=== PATIENT | female | born 1955 | race Caucasian/White ===

== ENCOUNTER 2019-05-10 04:39 | Inpatient (IN) | payer MEDICAID ==
[2019-05-10] VITALS (8 sets, daily range): BP systolic 113–137; BP diastolic 65–98
[~2019-05-10] VITALS: Ht 175.3 cm; Wt 88.5 kg
--- NOTE | 2019-05-10 04:52 | Emergency Room Report ---
History of Present Illness General Chief Complaint: Upper Respiratory Illness Source: Patient (Emmanuel Simon MD) Present Illness HPI This is a 63-year-old female with a history of COPD and hypertension. She presents with chief plane of coughing and wheezing. She is also been coughing for a month. Getting worse. She said her inhalers not helping. But she continues to smoke and smokes PCP. Also showed up with heroin. She is on the methadone clinic. Got worse tonight that she called 911. EMS said she was 91% on room air and was wheezing so they gave her albuterol. She is little bit better now. Has hoarseness of her voice. No nausea no vomiting. No fever chills. Coughing is productive of sputum. Denies any fever chills but denies any chest pain. Does have chest tightness from her breathing. (Emmanuel Simon MD) Allergies: Coded Allergies: TOPIRAMATE (Verified Allergy, Severe, 05/10/19) Says it puts her out and makes her delerious. METRONIDAZOLE (Verified Allergy, Unknown, Altered Mental Status, 05/10/19) She feels . VANCOMYCIN (Verified Allergy, Unknown, Itching, 05/10/19) Swells up like [place] doughboy. Patient History Past Medical History: see triage record, old chart reviewed, HTN, COPD Past Surgical History: other Pertinent Family History: none Social History: Reports: drug use Last Menstrual Period: na Now: No : 2 Para: 0 Immunizations: other Reviewed Nursing Documentation: PMH: Agreed; PSxH: Agreed (Emmanuel Simon MD) Nursing Documentation-PMH Hx Hypertension: Yes (Emmanuel Simon MD) Review of Systems Eye: Denies: eye pain, blurred vision ENT: Denies: ear pain, nose congestion, throat swelling Respiratory: Reports: cough, shortness of breath, wheezing Cardiovascular: Denies: chest pain, palpitations Gastrointestinal: Denies: abdominal pain, diarrhea, nausea, vomiting Musculoskeletal: Denies: back pain, joint pain Skin: Denies: rash Neurological: Denies: headache, numbness Endocrine: Denies: increased thirst, increased urine Hematologic/Lymphatic: Denies: easy bruising All Other Systems: negative except mentioned in HPI (Emmanuel Simon MD) Physical Exam Vital Signs Date Time Temp Pulse Resp B/P (MAP) Pulse Ox O2 Delivery O2 Flow Rate FiO2 05/10/19 04:40 98.8 97 16 116/85 (95) 94 Room Air Vitals unremarkable Sp02 EP Interpretation: reviewed, normal General Appearance: well appearing, no apparent distress, alert, obese Head: normocephalic, atraumatic Eyes: bilateral eye PERRL, bilateral eye EOMI ENT: hearing grossly normal, normal pharynx Neck: full range of motion, supple, no meningismus Respiratory: chest non-tender, decreased breath sounds, accessory muscle use, rhonchi, wheezing Cardiovascular #1: regular rate, rhythm, no murmur Gastrointestinal: normal bowel sounds, non tender, no mass, no organomegaly, no bruit, non-distended Musculoskeletal: back normal, normal range of motion, gait/station normal Psychiatric: mood/affect normal (Emmanuel Simon MD) Medical Decision Making Diagnostic Impression: Primary Impression: COPD with exacerbation Additional Impressions: Substance abuse Hiatal hernia Thrombocytopenia ER Course Presents with respiratory distress with wheezing. Better with breathing treatment. She is still wheezing however. Will admit versus transfer for further work-up. I see no obvious pneumonia. Since she has been coughing for a month, will put her on antibiotics. With the risk factor, neoplastic process could also be a consideration. She has a very large hiatal hernia. This can cause her problem with her respiratory status and reflux. No evidence of ACS, PE, dissection to name a few. (Emmanuel Simon MD) ER Course Patient presented for a cough and shortness of breath. Patient's laboratory testing was unremarkable. Chest x-ray showed a large hiatal hernia without evidence of pneumonia or infiltrate. Patient was discussed with Dr. Armenta who agreed to accept the patient transfer to [facility]. Patient's insurance company was unable to arrange arrange timely transfer for the patient and patient will be admitted to Dr. Gallardo. Labs Test 05/10/19 05:20 05/10/19 06:10 White Blood Count 6.6 K/UL (4.8-10.8) Red Blood Count 4.69 M/UL (4.20-5.40) Hemoglobin 14.5 G/DL (12.0-16.0) Hematocrit 40.9 % (37.0-47.0) Mean Corpuscular Volume 87 FL (80-99) Mean Corpuscular Hemoglobin 30.9 PG (27.0-31.0) Mean Corpuscular Hemoglobin Concent 35.5 G/DL (32.0-36.0) Red Cell Distribution Width 11.2 % (11.6-14.8) Platelet Count 86 K/UL (150-450) Mean Platelet Volume 11.5 FL (6.5-10.1) Neutrophils (%) (Auto) % (45.0-75.0) Lymphocytes (%) (Auto) % (20.0-45.0) Monocytes (%) (Auto) % (1.0-10.0) Eosinophils (%) (Auto) % (0.0-3.0) Basophils (%) (Auto) % (0.0-2.0) Sodium Level 134 MMOL/L (136-145) Potassium Level 3.6 MMOL/L (3.5-5.1) Chloride Level 98 MMOL/L (98-107) Carbon Dioxide Level 31 MMOL/L (21-32) Anion Gap 5 mmol/L (5-15) Blood Urea Nitrogen 22 mg/dL (7-18) Creatinine 1.0 MG/DL (0.55-1.30) Estimat Glomerular Filtration Rate 56.2 mL/min (>60) Glucose Level 171 MG/DL (74-106) Calcium Level 8.3 MG/DL (8.5-10.1) Total Bilirubin 0.7 MG/DL (0.2-1.0) Aspartate Amino Transf (AST/SGOT) 33 U/L (15-37) Alanine Aminotransferase (ALT/SGPT) 27 U/L (12-78) Alkaline Phosphatase 76 U/L (46-116) Troponin I 0.000 ng/mL (0.000-0.056) Pro-B-Type Natriuretic Peptide 177 pg/mL (0-125) Total Protein 7.8 G/DL (6.4-8.2) Albumin 3.0 G/DL (3.4-5.0) Globulin 4.8 g/dL Albumin/Globulin Ratio 0.6 (1.0-2.7) Serum Alcohol < 3 mg/dL Urine Color Yellow Urine Appearance Clear Urine pH 5 (4.5-8.0) Urine Specific [place] 1.020 (1.005-1.035) Urine Protein 2+ (NEGATIVE) Urine Glucose (UA) 2+ (NEGATIVE) Urine Ketones Negative (NEGATIVE) Urine Blood 2+ (NEGATIVE) Urine Nitrite Negative (NEGATIVE) Urine Bilirubin Negative (NEGATIVE) Urine Urobilinogen 1 MG/DL (0.0-1.0) Urine Leukocyte Esterase 1+ (NEGATIVE) Urine RBC 2-4 /HPF (0 - 2) Urine WBC 2-4 /HPF (0 - 2) Urine Squamous Epithelial Cells Few /LPF (NONE/OCC) Urine Bacteria Few /HPF (NONE) Urine Opiates Screen Negative (NEGATIVE) Urine Barbiturates Screen Negative (NEGATIVE) Phencyclidine (PCP) Screen Negative (NEGATIVE) Urine Amphetamines Screen Positive (NEGATIVE) Urine Benzodiazepines Screen Positive (NEGATIVE) Urine Cocaine Screen Negative (NEGATIVE) Urine Marijuana (THC) Screen Negative (NEGATIVE) (Amanuel Bailey MD) EKG Diagnostic Results Rate: normal Rhythm: NSR ST Segments: no acute changes (Emmanuel Simon MD) Rhythm Strip Diag. Results EP Interpretation: yes Rate: 89 Rhythm: NSR, no PVC's, no ectopy (Emmanuel Simon MD) Chest X-Ray Diagnostic Results Chest X-Ray Diagnostic Results : Chest X-Ray Ordered: Yes # of Views/Limited/Complete: 1 View Indication: Shortness of Breath EP Interpretation: Yes Interpretation: no effusion, no pneumothorax, other - large hiatal hernia Impression: Other - hiatal hernia Electronically Signed by: Emmanuel Simon MD (Emmanuel Simon MD) Last Vital Signs Date Time Temp Pulse Resp B/P (MAP) Pulse Ox O2 Delivery O2 Flow Rate FiO2 05/10/19 04:40 98.8 97 16 116/85 (95) 94 Room Air Status: improved (Emmanuel Simon MD) Status: improved (Amanuel Bailey MD) Disposition: ADMITTED INPATIENT Condition: Serious Emmanuel Simon MD May 10, 2019 04:52 Amanuel Bailey MD May 10, 2019 07:26
[2019-05-10] MEDS ORDERED: Ipratropium 0.02% Inh Soln 2.5ml UD HHN ONE (05:00)
[2019-05-10] MEDS ORDERED: Albuterol ud Inhalation HHN ONE ×2 (05:00→06:45)
[2019-05-10] MEDS ORDERED: Solu-MEDROL 125mg Inj IVP ONE (05:00)
--- NOTE | 2019-05-10 05:05 | NUR ---
ED Nurse Note: pt presents to ED via EMS arrival RA 26 from home c/o SOB. pt states that she just started feeling difficulty breathing but has had a cough x 1 month. per EMS, pt was at 91% on RA, they gave her a breathing treatment with albuterol which brought her up to 94%. pt reports a 40 year history of drug use, primarily meth and heroine. pt admits to using meth today prior to arrival and last using heroine last week sometime. pt has chronic knee pain and uses a wheelchair
--- NOTE | 2019-05-10 05:06 | NUR ---
ED Nurse Note: pt has many bruises noted on her abd and arms, when asked what they are from pt reports that they are from "shooting up"
--- NOTE | 2019-05-10 05:14 | NUR ---
ED Nurse Note: pt has audilble wheezes, SpO2 was at 88% on room air, pt put on NC 4L, now satting at 97%
--- NOTE | 2019-05-10 05:15 | NUR ---
ED Nurse Note: RT is at pt bedside
[2019-05-10 06:00] LABS: HEMATOCRIT 40.9 % (37.0-47.0); HEMOGLOBIN 14.5 G/DL (12.0-16.0); MEAN CORPUSCULAR VOLUME 87 FL (80-99); PLATELET COUNT 86 K/UL (150-450); RED BLOOD COUNT 4.69 M/UL (4.20-5.40); RED CELL DISTRIBUTION WIDTH 11.2 % (11.6-14.8); WHITE BLOOD COUNT 6.6 K/UL (4.8-10.8)
--- NOTE | 2019-05-10 06:05 | NUR ---
ED Nurse Note: pt's wheelchair and belongings were placed in clean utilities with identification stickers on them due to limited space in pt room
[2019-05-10 06:11] LABS: ANION GAP 5 mmol/L (5-15); BLOOD UREA NITROGEN 22 mg/dL (7-18); CALCIUM 8.3 MG/DL (8.5-10.1); CARBON DIOXIDE 31 MMOL/L (21-32); CHLORIDE 98 MMOL/L (98-107); POTASSIUM 3.6 MMOL/L (3.5-5.1); SODIUM 134 MMOL/L (136-145)
[2019-05-10] MEDS ORDERED: Azithromycin 250mg tab ORAL ONE (06:15)
[2019-05-10] MEDS ORDERED: cefTRIAXone 1 GM in NS 55 ML IVPB ONE (06:15)
[2019-05-10 06:21] LABS: ALANINE AMINOTRANSFERASE 27 U/L (12-78); ALBUMIN/GLOBULIN RATIO 0.6 (1.0-2.7); ALKALINE PHOSPHATASE 76 U/L (46-116); ASPARTATE AMINO TRANSFERASE 33 U/L (15-37); BILIRUBIN,TOTAL 0.7 MG/DL (0.2-1.0)
[2019-05-10 06:33] LABS: APPEARANCE,URINE CLEAR; BILIRUBIN, URINE NEGATIVE (NEGATIVE); GLUCOSE, URINE (UA) 2+ (NEGATIVE); KETONES,URINE NEGATIVE (NEGATIVE); LEUKOCYTE ESTERASE ,URINE 1+ (NEGATIVE); NITRITE,URINE NEGATIVE (NEGATIVE); PH,URINE 5 (4.5-8.0); PROTEIN,URINE 2+ (NEGATIVE); UROBILINOGEN,URINE 1 MG/DL (0.0-1.0)
[2019-05-10] MEDS ORDERED: ATENOLOL25 MG ORAL (06:34)
[2019-05-10] MEDS ORDERED: CYMBALTA30 MG ORAL (06:34)
[2019-05-10] MEDS ORDERED: CLONIDINE1 EAC1 TD (06:34)
[2019-05-10] MEDS ORDERED: BENAZEPRIL HCL10 MG ORAL (06:34)
[2019-05-10] MEDS ORDERED: AMLODIPINE BES2.5 MG ORAL (06:34)
[2019-05-10 06:41] LABS: COLOR,URINE YELLOW
--- NOTE | 2019-05-10 07:05 | NUR ---
ED Nurse Note: spoke with Tara from [facility], was informed pt would be transferred to [facility]. pending MD to
--- NOTE | 2019-05-10 07:20 | NUR ---
HAND-OFF: Report given to MOHAMUD Larkin.
--- NOTE | 2019-05-10 08:00 | NUR ---
ED Nurse Note: RN ASSISTED PT TO BED SIDE COMMODE.
--- NOTE | 2019-05-10 08:20 | NUR ---
ED Nurse Note: RN ASSISTED PT BACK TO BED, WARM BLANKET PROVIDED.
--- NOTE | 2019-05-10 10:30 | Diagnostic Imaging Report ---
Indication: Shortness of breath Technique: One view of the chest Comparison: none Findings: There is a large retrocardiac diaphragmatic hernia. Uncertain whether gas outlines stomach or colon. The lungs and pleural spaces are clear. The heart size is difficult to assess, probably upper limits of normal. Impression: Large retrocardiac hernia, nature which is uncertain-hiatal versus other No definite acute pulmonary process
--- NOTE | 2019-05-10 11:13 | NUR ---
ED Nurse Note: PT IS RESTING ON GURNEY WITH NO ACUTE DISTRESS. SIDE RAILS UP FOR SAFETY.
[2019-05-10] MEDS ORDERED: Albuterol/Ipratropium 3ml neb HHN ONE (13:00)
--- NOTE | 2019-05-10 13:09 | NUR ---
HAND-OFF: Report given to CARSON MALLORY.
--- NOTE | 2019-05-10 13:10 | NUR ---
ED Nurse Note: Report received from Chaya Da Silva RN. PT is currently laying in bed with eyes closed. appears to be sleeping. VSS, no acute distress is noted.
--- NOTE | 2019-05-10 14:44 | NUR ---
ED Nurse Note: Report given to MOHAMUD DOMÍNGUEZ from med/surg
--- NOTE | 2019-05-10 15:20 | NUR ---
ED Nurse Note: PT taken up to MED/SURg floor accompanied by radiation technician in stable condition. VSS. Belonging list signed off.
[2019-05-10] MEDS ORDERED: Atenolol 25mg tab ORAL SCH (16:00)
[2019-05-10] MEDS: DULoxetine 30mg cap ORAL SCH (17:42)
[2019-05-10] MEDS: Solu-MEDROL 40mg Inj IVP SCH (17:43)
--- NOTE | 2019-05-10 18:34 | NUR ---
CASE MANAGEMENT: INITIAL REVIEW 05/10/2019 63 YO F PRESENTED TO ED FROM HOME CC: URI PMHx: COPD. HTN. SI:COPD EXACERBATION T 98.8 HR 97 RR 16 B/P 116/85 SATS 94% ON RA LABS: NA 134 BUN 22 GLU 171 CA 8.3 BNP 177 UTOX (+ METH AND BENZOS) IS: DUO NEB HHN X1 SOLU MEDROL IV X1 CEFTRIAXONE IV X1 AZITHROMYCIN PO X1 ALBUTEROL HHN X1 EKG Rate: normal Rhythm: NSR ST Segments: no acute changes CXR Impression: Other - hiatal hernia PATIENT ADMITTED TO MED/SURG 05/10/2019 @ 1011 DCP: PATIENT TO BE DISCHARGED TO HOME ONCE MEDICALLY CLEARED. PLAN OF CARE: PULMO HYGIENE PT EVAL Addendum: 05/10/19 at 1844 by Brandy Adame CM INTERAGUILAR LU
[2019-05-10] MEDS: Albuterol/Ipratropium 3ml neb HHN SCH ×2 (19:00→23:27)
--- NOTE | 2019-05-10 20:02 | NUR ---
HAND-OFF: Report given to MOHAMUD Beard. Patient laying on right side, sleeping, respirations at 16 breaths per minute, bed in lowest position, call light within reach, IV patent into right antecubital 20 gauge running antibiotics, in no apparent distress, patient's wheelchair at left of bed, no c/o pain, SOB treated with RTQ4 hours and medication.
--- NOTE | 2019-05-10 20:07 | NUR ---
NURSE NOTES: Patient is in bed, awake alert and verbal. Breathing on N/C, no acute distress noted. No c/o pain or discomfort at this time. Bed in lowest position, call light within reach. will continue to monitor the pt.
[2019-05-10] MEDS ORDERED: Heparin 5000 units/ml inj SUBQ SCH (21:00)
--- NOTE | 2019-05-10 21:31 | History and Physical Report ---
DATE OF ADMISSION: 05/10/2019 HISTORY OF PRESENT ILLNESS: This is a 63-year-old female with history of COPD and hypertension. She came to the hospital with cough, wheezing, and shortness of breath, this has been getting worse. She also uses chronically methadone. The patient states is not helping her. She is an active smoker and she also admits to smoking PCP. There is also history of heroin usage. She was hypoxic in the ER, she received breathing treatments. At this time, she is feeling better. PAST MEDICAL HISTORY: Notable for substance abuse, hypertension, COPD. SURGERIES: None. MEDICATIONS: Reviewed and reconciled in chart. ALLERGIES: None. REVIEW OF SYSTEMS: She denies any headaches, hematemesis, melena, or hematochezia. She admits to having cough and shortness of breath. PHYSICAL EXAMINATION: GENERAL: Reveals a 63-year-old female. VITAL SIGNS: Blood pressure 116/80, heart rate 92, respirations , afebrile. HEENT: Unremarkable. LUNGS: Decreased breath sounds bilaterally with few rhonchi. ABDOMEN: Soft. EXTREMITIES: There is no edema. LABORATORY AND DIAGNOSTIC DATA: Lab testing shows normal CBC and BMP. Toxicology is positive for amphetamines and benzodiazepines. Imaging studies show x-ray of chest with clear liquids bilaterally with a large retrocardiac hernia. IMPRESSION: 1. Exacerbation of COPD. 2. Substance abuse. DISCUSSION: Admit to the hospital. We will start steroids, antibiotics, oxygen, pulmonary hygiene. Resume methadone. We will follow as armored car driver and adventure education teacher. Jose Gallardo M.D. DR: MAYA JOB#: [id number] CC:
[2019-05-11] VITALS: BP 133/95
--- NOTE | 2019-05-11 00:26 | NUR ---
NURSE NOTES: Pt refused scheduled Solu-MEDROL 40mg(1ml) @ 0000. Made multiple attempts to give medication and explain risk and benefits of not to taking medication. Despite of education and encouragement pt refused mediation.
[2019-05-11] MEDS: Albuterol/Ipratropium 3ml neb HHN SCH ×7 (03:00→23:53)
[2019-05-11 04:00] VITALS: BP 151/92
[2019-05-11] MEDS: Solu-MEDROL 40mg Inj IVP SCH ×5 (06:00→23:58)
--- NOTE | 2019-05-11 06:06 | NUR ---
NURSE NOTES: Pt refused scheduled Solu-MEDROL 40mg(1ml) @ 0600. Made multiple attempts to give medication and explain risk and benefits of not to taking medication. Despite of education and encouragement pt refused mediation.
--- NOTE | 2019-05-11 07:17 | NUR ---
NURSE NOTES: Received report from MOHAMUD Díaz. pt in bed, asleep, respiration unlabored, pt in calm relaxed position, bed in lowest position, call light within reach
--- NOTE | 2019-05-11 07:31 | NUR ---
HAND-OFF: Report given to MOHAMUD Burns. Endorsed about fall risk status to oncoming shift.
[2019-05-11 08:00] VITALS: BP 130/92
[2019-05-11] MEDS: DULoxetine 30mg cap ORAL SCH (09:42)
[2019-05-11] MEDS: Atenolol 25mg tab ORAL SCH ×2 (09:43→17:29)
[2019-05-11] MEDS: Benazepril 10mg tab ORAL SCH (09:43)
--- NOTE | 2019-05-11 10:46 | NUR ---
PT EVALUATION/DISCHARGE NOTE Patient seen for initial evaluation. Patient has been non-ambulatory for 2 years due to valgus deformity R knee. Patient demonstrated independent bed mobility and transfers to/from her wheelchair. Skilled inpatient PT intervention not warranted as patient is at baseline level of function. Patient discharged from PT, Ines MALLORY notified. Addendum: 05/11/19 at 1047 by CHARLY BARRIOS PT Amended: Links added.
[2019-05-11 11:11] LABS: HEMATOCRIT 39.9 % (37.0-47.0); HEMOGLOBIN 13.9 G/DL (12.0-16.0); MEAN CORPUSCULAR VOLUME 88 FL (80-99); PLATELET COUNT 74 K/UL (150-450); RED BLOOD COUNT 4.54 M/UL (4.20-5.40); WHITE BLOOD COUNT 9.6 K/UL (4.8-10.8)
[2019-05-11 11:47] LABS: ALANINE AMINOTRANSFERASE 24 U/L (12-78); ALBUMIN 2.8 G/DL (3.4-5.0); ALBUMIN/GLOBULIN RATIO 0.6 (1.0-2.7); ALKALINE PHOSPHATASE 71 U/L (46-116); ANION GAP 5 mmol/L (5-15); ASPARTATE AMINO TRANSFERASE 25 U/L (15-37); BILIRUBIN,TOTAL 0.5 MG/DL (0.2-1.0); BLOOD UREA NITROGEN 20 mg/dL (7-18); CALCIUM 8.7 MG/DL (8.5-10.1); CARBON DIOXIDE 32 MMOL/L (21-32); CHLORIDE 100 MMOL/L (98-107); CREATININE 0.9 MG/DL (0.55-1.30); POTASSIUM 4.5 MMOL/L (3.5-5.1); SODIUM 137 MMOL/L (136-145)
[2019-05-11 12:00] VITALS: BP 127/89
--- NOTE | 2019-05-11 13:42 | Pulmonology Progress Note ---
Assessment/Plan Assessment/Plan IMPRESSION: 1. Exacerbation of COPD. 2. Substance abuse. DISCUSSION: Continue steroids, antibiotics, oxygen, pulmonary hygiene. Resume methadone. I will follow as addiction treatment counselor and underwriting intern. Jose Gallardo M.D. Subjective Interval Events: Feeling better Constitutional: Reports: no symptoms HEENT: Repors: no symptoms Respiratory: Reports: no symptoms Cardiovascular: Reports: no symptoms Gastrointestinal/Abdominal: Reports: no symptoms Allergies: Coded Allergies: TOPIRAMATE (Verified Allergy, Severe, 05/10/19) Says it puts her out and makes her delerious. METRONIDAZOLE (Verified Allergy, Unknown, Altered Mental Status, 05/10/19) She feels . VANCOMYCIN (Verified Allergy, Unknown, Itching, 05/10/19) Swells up like [place] doughboy. Objective Last 24 Hour Vital Signs Date Time Temp Pulse Resp B/P (MAP) Pulse Ox O2 Delivery O2 Flow Rate FiO2 05/11/19 12:00 98.0 86 18 127/89 (102) 97 05/11/19 09:43 130/92 05/11/19 09:43 87 130/92 05/11/19 09:43 87 130/92 05/11/19 08:21 87 18 97 Nasal Cannula 2.0 28 85 18 93 05/11/19 08:12 Nasal Cannula 2.0 05/11/19 08:00 97.8 91 18 130/92 (105) 95 05/11/19 04:00 97.7 94 18 151/92 (111) 95 05/11/19 00:00 97.5 92 18 133/95 (108) 95 05/10/19 23:27 90 18 95 Nasal Cannula 2.0 28 88 18 95 05/10/19 21:00 Nasal Cannula 2.0 05/10/19 20:39 97.5 96 18 137/98 (111) 95 05/10/19 17:43 87 122/72 05/10/19 17:42 87 122/72 05/10/19 17:34 Nasal Cannula 2.0 05/10/19 16:30 98.5 87 18 122/72 (89) 95 05/10/19 15:20 98.4 83 16 135/77 98 Nasal Cannula 2.0 Intake and Output 05/10/19 05/11/19 19:00 07:00 Intake Total 500 ml 360 ml Balance 500 ml 360 ml Intake Other 500 ml 360 ml # Voids 2 General Appearance: no acute distress HEENT: normocephalic Respiratory/Chest: chest wall non-tender, decreased breath sounds, rhonchi Cardiovascular: normal peripheral pulses Abdomen: normal bowel sounds Laboratory Tests 05/11/19 10:55: White Blood Count 9.6, Red Blood Count 4.54, Hemoglobin 13.9, Hematocrit 39.9, Mean Corpuscular Volume 88, Mean Corpuscular Hemoglobin 30.5, Mean Corpuscular Hemoglobin Concent 34.8, Red Cell Distribution Width 11.0L, Platelet Count 74L, Mean Platelet Volume 11.4H, Neutrophils (%) (Auto) , Lymphocytes (%) (Auto) , Monocytes (%) (Auto) , Eosinophils (%) (Auto) , Basophils (%) (Auto) , Differential Total Cells Counted 100, Neutrophils % (Manual) 87H, Lymphocytes % (Manual) 8L, Monocytes % (Manual) 5, Eosinophils % (Manual) 0, Basophils % ( Manual) 0, Band Neutrophils 0, Platelet Estimate DecreasedL, Platelet Morphology Normal, Red Blood Cell Morphology Normal, Sodium Level 137, Potassium Level 4.5, Chloride Level 100, Carbon Dioxide Level 32, Anion Gap 5, Blood Urea Nitrogen 20H, Creatinine 0.9, Estimat Glomerular Filtration Rate > 60 , Glucose Level 283#H, Calcium Level 8.7, Total Bilirubin 0.5, Aspartate Amino Transf (AST/SGOT) 25, Alanine Aminotransferase (ALT/SGPT) 24, Alkaline Phosphatase 71, Total Protein 7.4, Albumin 2.8L, Globulin 4.6, Albumin/Globulin Ratio 0.6L Current Medications Medications (Trade) Dose Ordered Sig/Karol Route PRN Reason Start Time Stop Time Status Last Admin Dose Admin Albuterol/ Ipratropium (Albuterol/ Ipratropium) 3 ml Q4HRT HHN 05/10/19 19:00 05/15/19 18:59 05/11/19 08:11 Amlodipine Besylate (Norvasc) 5 mg DAILY ORAL 05/11/19 09:00 06/09/19 15:59 05/11/19 09:43 Atenolol (Tenormin) 25 mg TWICE A DAY ORAL 05/11/19 09:00 06/09/19 15:59 05/11/19 09:43 Benazepril HCl (Lotensin) 20 mg DAILY ORAL 05/11/19 09:00 06/10/19 08:59 05/11/19 09:43 Clonazepam (KlonoPIN) 1 mg BID PRN ORAL For Anxiety 05/11/19 13:30 05/17/19 21:59 Duloxetine HCl (Cymbalta) 30 mg DAILY ORAL 05/10/19 16:00 06/09/19 15:59 05/11/19 09:42 Heparin Sodium (Porcine) (Heparin 5000 units/ml) 5,000 units EVERY 12 HOURS SUBQ 05/10/19 21:00 06/09/19 20:59 UNV Levofloxacin 100 ml @ 100 mls/hr Q24H IVPB 05/10/19 18:00 05/17/19 17:59 05/10/19 18:42 Methadone HCl (Methadone HCl) 100 mg DAILY ORAL 05/11/19 09:00 05/18/19 08:59 05/11/19 09:45 Methylprednisolone Sodium Succinate (Solu-MEDROL) 40 mg EVERY 6 HOURS IVP 05/10/19 16:03 06/09/19 16:02 05/11/19 12:22 Jose Gallardo MD May 11, 2019 13:42
--- NOTE | 2019-05-11 15:45 | NUR ---
CASE MANAGEMENT:INITAL REVIEW 63 YR OLD FEMALE FROM HOME CC;UPPER RESPIRATORY ILLNESS SI;COPD W/EXACERBATION. SUBSTANCE ABUSE. THROMBOCYTOPENIA. HIATAL HERNIA. 98.8 97 23 116/85 97% 4L NC FIO2 36% NA 134 BUN 22 BG 171 CA 8.3 UA+ PROTEIN, GLUCOSE, BLOOD, UROBILI, LEUKOCYTE, RBC TOX+ AMPHETAMINES, BENZO IS;ALBUTEROL HHN X2 IPRATROPIUM HHN X1 ROCEPHIN IV X1 AZITHROMYCIN IV X1 ADMITTED TO MED SURG MED SURG STATUS DCP;FROM HOME
[2019-05-11 16:00] VITALS: BP 131/86
--- NOTE | 2019-05-11 19:27 | NUR ---
HAND-OFF: Report given to MOHAMDU Dupree. PT in bed, and stable.
[2019-05-11 20:35] VITALS: BP 121/89
--- NOTE | 2019-05-11 20:42 | NUR ---
NURSE NOTES: Received patient awake, alert, verbal, resting in bed, no SOB, comfortable.
[2019-05-12] MEDS: Albuterol/Ipratropium 3ml neb HHN SCH ×6 (03:05→23:00)
[2019-05-12 04:00] VITALS: BP 132/81
[2019-05-12] MEDS: Solu-MEDROL 40mg Inj IVP SCH ×4 (06:10→23:54)
--- NOTE | 2019-05-12 07:23 | NUR ---
HAND-OFF: Report given to Sarah Gonzalez RN.
--- NOTE | 2019-05-12 07:31 | NUR ---
NURSE NOTES: received report from MOHAMUD Dupree. patient in bed, having breakfast, A&Ox4, verbally responsive, no respiratory distress on o2 2l via NC, no pain at this time. IV on LH24 saline. intact. skin intact. bed in the lowest position and locked. call light within reach. will continue to provide plan of care.
[2019-05-12 08:00] VITALS: BP 135/91
[2019-05-12] MEDS: Atenolol 25mg tab ORAL SCH ×2 (08:29→17:21)
[2019-05-12] MEDS: DULoxetine 30mg cap ORAL SCH (08:29)
[2019-05-12] MEDS: Benazepril 10mg tab ORAL SCH (08:30)
[2019-05-12 12:00] VITALS: BP 145/95
--- NOTE | 2019-05-12 12:06 | Pulmonology Progress Note ---
Assessment/Plan Assessment/Plan IMPRESSION: 1. Exacerbation of COPD. 2. Substance abuse. DISCUSSION: Continue steroids, antibiotics, oxygen, pulmonary hygiene. Resumed methadone. I will follow as licensed practical nurse clinic nurse and hauling contractor. Dc home in AM Jose Gallardo M.D. Subjective Interval Events: Feeling better Constitutional: Reports: no symptoms HEENT: Repors: no symptoms Respiratory: Reports: no symptoms Cardiovascular: Reports: no symptoms Gastrointestinal/Abdominal: Reports: no symptoms Allergies: Coded Allergies: TOPIRAMATE (Verified Allergy, Severe, 05/10/19) Says it puts her out and makes her delerious. METRONIDAZOLE (Verified Allergy, Unknown, Altered Mental Status, 05/10/19) She feels . VANCOMYCIN (Verified Allergy, Unknown, Itching, 05/10/19) Swells up like [place] doughboy. Objective Last 24 Hour Vital Signs Date Time Temp Pulse Resp B/P (MAP) Pulse Ox O2 Delivery O2 Flow Rate FiO2 05/12/19 11:53 83 18 96 Nasal Cannula 2.0 28 80 18 91 05/12/19 09:00 Nasal Cannula 2.0 05/12/19 08:30 135/91 05/12/19 08:29 89 135/91 05/12/19 08:29 89 135/91 05/12/19 08:00 98.2 89 18 135/91 (106) 93 05/12/19 07:43 85 18 95 Nasal Cannula 2.0 28 83 18 91 05/12/19 07:42 92 Nasal Cannula 2.0 28 05/12/19 04:00 97.2 80 18 132/81 (98) 92 05/11/19 21:00 Nasal Cannula 2.0 05/11/19 20:35 96.4 77 18 121/89 (100) 92 05/11/19 20:23 83 17 98 Nasal Cannula 2.0 28 82 18 96 05/11/19 19:00 96 Nasal Cannula 2.0 28 05/11/19 17:29 80 131/86 05/11/19 16:00 97.9 80 18 131/86 (101) 93 05/11/19 15:49 79 20 95 Nasal Cannula 2.0 28 76 20 92 Intake and Output 05/11/19 05/12/19 19:00 07:00 Intake Total 1200 ml 440 ml Balance 1200 ml 440 ml Intake Oral 440 ml Other 1200 ml # Voids 4 General Appearance: no acute distress HEENT: normocephalic Respiratory/Chest: chest wall non-tender, lungs clear Cardiovascular: normal peripheral pulses Abdomen: soft, non tender Current Medications Medications (Trade) Dose Ordered Sig/Karol Route PRN Reason Start Time Stop Time Status Last Admin Dose Admin Albuterol/ Ipratropium (Albuterol/ Ipratropium) 3 ml Q4HRT HHN 05/10/19 19:00 05/15/19 18:59 05/12/19 11:53 Amlodipine Besylate (Norvasc) 5 mg DAILY ORAL 05/11/19 09:00 06/09/19 15:59 05/12/19 08:29 Atenolol (Tenormin) 25 mg TWICE A DAY ORAL 05/11/19 09:00 06/09/19 15:59 05/12/19 08:29 Benazepril HCl (Lotensin) 20 mg DAILY ORAL 05/11/19 09:00 06/10/19 08:59 05/12/19 08:30 Clonazepam (KlonoPIN) 1 mg BID PRN ORAL For Anxiety 05/11/19 13:30 05/17/19 21:59 05/12/19 09:22 Duloxetine HCl (Cymbalta) 30 mg DAILY ORAL 05/10/19 16:00 06/09/19 15:59 05/12/19 08:29 Levofloxacin 100 ml @ 100 mls/hr Q24H IVPB 05/10/19 18:00 05/17/19 17:59 05/11/19 17:29 Methadone HCl (Methadone HCl) 100 mg DAILY ORAL 05/11/19 09:00 05/18/19 08:59 05/12/19 08:30 Methylprednisolone Sodium Succinate (Solu-MEDROL) 40 mg EVERY 6 HOURS IVP 05/10/19 16:03 06/09/19 16:02 05/12/19 06:10 Jose Gallardo MD May 12, 2019 12:06
[2019-05-12 16:00] VITALS: BP 137/90
--- NOTE | 2019-05-12 19:10 | NUR ---
HAND-OFF: Report given to MOHAMUD Dupree.
--- NOTE | 2019-05-12 19:32 | NUR ---
NURSE NOTES: Received patient awake,alert,verbal,resting in bed,no SOB noted.
[2019-05-12 20:00] VITALS: BP 141/99
[2019-05-13 00:30] VITALS: BP 147/93
[2019-05-13] MEDS: Albuterol/Ipratropium 3ml neb HHN SCH ×4 (03:00→14:39)
[2019-05-13 04:17] VITALS: BP 139/94
[2019-05-13] MEDS: Solu-MEDROL 40mg Inj IVP SCH ×3 (05:39→12:30)
--- NOTE | 2019-05-13 07:27 | NUR ---
HAND-OFF: Report given to Emanuel Aaron RN.
[2019-05-13 08:00] VITALS: BP 146/91
--- NOTE | 2019-05-13 08:49 | NUR ---
NURSE NOTES: Received patient report from MOHAMUD Dupree. Patient sitting up in bed, awake and alert, eating breakfast, 2 liters nasal cannula, in no apparent distress, bed in lowest position, call light within reach.
[2019-05-13] MEDS: Atenolol 25mg tab ORAL SCH (09:04)
[2019-05-13] MEDS: Benazepril 10mg tab ORAL SCH (09:05)
[2019-05-13] MEDS: DULoxetine 30mg cap ORAL SCH (09:05)
[2019-05-13 12:00] VITALS: BP 142/105
--- NOTE | 2019-05-13 12:42 | Pulmonology Progress Note ---
Assessment/Plan Assessment/Plan IMPRESSION: 1. Exacerbation of COPD. 2. Substance abuse. DISCUSSION: Continue steroids, antibiotics, oxygen, pulmonary hygiene. Resumed methadone. I will follow as clinical lab scientist and factory engineer. Dc home Jose Gallardo M.D. Subjective Interval Events: None new Constitutional: Reports: no symptoms HEENT: Repors: no symptoms Respiratory: Reports: no symptoms Cardiovascular: Reports: no symptoms Gastrointestinal/Abdominal: Reports: no symptoms Allergies: Coded Allergies: TOPIRAMATE (Verified Allergy, Severe, 05/10/19) Says it puts her out and makes her delerious. METRONIDAZOLE (Verified Allergy, Unknown, Altered Mental Status, 05/10/19) She feels . 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 Objective Last 24 Hour Vital Signs Date Time Temp Pulse Resp B/P (MAP) Pulse Ox O2 Delivery O2 Flow Rate FiO2 05/13/19 09:05 146/91 05/13/19 09:05 90 146/91 05/13/19 09:04 90 146/91 05/13/19 09:00 Nasal Cannula 2.0 Nasal Cannula 2.0 05/13/19 08:00 97.9 90 18 146/91 (109) 94 05/13/19 07:51 94 Room Air 21 05/13/19 04:17 98.0 94 16 139/94 (109) 98 05/13/19 00:30 97.8 93 16 147/93 (111) 97 05/12/19 21:31 Nasal Cannula 2.0 05/12/19 20:07 81 18 98 Nasal Cannula 2.0 28 79 18 94 05/12/19 20:07 92 Room Air 21 05/12/19 20:00 98.1 81 18 141/99 (113) 97 05/12/19 17:21 79 137/90 05/12/19 16:00 97.2 79 17 137/90 (106) 97 Intake and Output 05/12/19 05/13/19 19:00 07:00 Intake Total 1200 ml Balance 1200 ml Other 1200 ml # Voids 4 General Appearance: no acute distress HEENT: normocephalic Respiratory/Chest: chest wall non-tender, lungs clear Cardiovascular: normal peripheral pulses, normal rate Abdomen: normal bowel sounds Current Medications Medications (Trade) Dose Ordered Sig/Karol Route PRN Reason Start Time Stop Time Status Last Admin Dose Admin Albuterol/ Ipratropium (Albuterol/ Ipratropium) 3 ml Q4HRT HHN 05/10/19 19:00 05/15/19 18:59 05/12/19 20:34 Amlodipine Besylate (Norvasc) 5 mg DAILY ORAL 05/11/19 09:00 06/09/19 15:59 05/13/19 09:05 Atenolol (Tenormin) 25 mg TWICE A DAY ORAL 05/11/19 09:00 06/09/19 15:59 05/13/19 09:04 Benazepril HCl (Lotensin) 20 mg DAILY ORAL 05/11/19 09:00 06/10/19 08:59 05/13/19 09:05 Clonazepam (KlonoPIN) 1 mg BID PRN ORAL For Anxiety 05/11/19 13:30 05/17/19 21:59 05/13/19 09:10 Duloxetine HCl (Cymbalta) 30 mg DAILY ORAL 05/10/19 16:00 06/09/19 15:59 05/13/19 09:05 Levofloxacin 100 ml @ 100 mls/hr Q24H IVPB 05/10/19 18:00 05/17/19 17:59 05/12/19 17:34 Methadone HCl (Methadone HCl) 100 mg DAILY ORAL 05/11/19 09:00 05/18/19 08:59 05/13/19 09:04 Methylprednisolone Sodium Succinate (Solu-MEDROL) 40 mg EVERY 6 HOURS IVP 05/10/19 16:03 06/09/19 16:02 05/13/19 05:39 Jose Gallardo MD May 13, 2019 12:42
[2019-05-13] MEDS ORDERED: MEDROL DOSEPAK4 MG ORAL (12:45)
[2019-05-13] MEDS ORDERED: LEVAQUIN500 MG ORAL (12:45)
--- NOTE | 2019-05-15 09:57 | Discharge Summary ---
Discharge Summary Discharge Summary _ DATE OF ADMISSION: DATE OF DISCHARGE: 05/13/2019 DISCHARGED BY: Dr. Gallardo REASON FOR ADMISSION: 63 years old female with past medical history of COPD and hypertension , presented to the hospital with cough, wheezing, and shortness of breath. Patient reported prior history of heroin use and currently on chronic methadone. Patient also reports smoking marijuana. In emergency department she was hypoxic . Chest x-ray demonstrated no definite acute pulmonary process. Large retrocardiac hernia noted. Urine toxicology screen was positive for amphetamine and benzodiazepine. Serum alcohol level less than 3. Patient received IV steroid , bronchodilator treatment via HHN and admitted for further management. HOSPITAL COURSE: Patient admitted to medical surgical floor. Patient started on steroids and empriic antibiotic. Supplemental oxygen provided and titrated to keep pulse oximetry above 92%. Pulmonary hygiene provided with bronchodilator therapy via HHN. Methadone was resumed. DVT prophylaxis provided. Patient clinically stabilized and was ready for discharge home. Prior to discharge pulse oximetry stable on room air. Prescription for Medrol Dosepak and antibiotics provided. P Patient was counseled on abstinence from illicit street drugs. FINAL DIAGNOSES: Exacerbation of COPD Substance abuse DISCHARGE MEDICATIONS: See Medication Reconciliation list. DISCHARGE INSTRUCTIONS: Patient was discharged home. Follow-up with a primary care provider in 1 week. I have been assigned to dictate discharge summary for this account. I was not involved in the patient's management. Eloina Bradley NP May 15, 2019 09:57
== END 2019-05-13 15:00 | disposition home or self-care (01) | DRG 140 ==
LOC: EDBD 04:39 → EMR 06:07 → 4E 10:11 → EDBEDREQ 12:47 → 4E 14:11
DX: J44.1 Chronic obstructive pulmonary disease with (acute) exacerbation (principal); I10 Essential (primary) hypertension; F11.20 Opioid dependence, uncomplicated; R09.02 Hypoxemia
CPT/HCPCS: 36415; 71045; 80053; 80307; 81003; 83880; 84484; 85007; 85025; 93005; 94640; 96365; 96375; 99285; G0480; J7620

== ENCOUNTER 2020-02-21 23:43 | Emergency (ER) | payer MEDICAID ==
[~2020-02-21] VITALS: Ht 170.2 cm; Wt 81.6 kg
[~2020-02-21 23:43] MED LIST: AMLODIPINE BES2.5 MG ORAL; ATENOLOL25 MG ORAL; BENAZEPRIL HCL10 MG ORAL; CLONIDINE1 EAC1 TD; CYMBALTA30 MG ORAL; LEVAQUIN500 MG ORAL; MEDROL DOSEPAK4 MG ORAL
[2020-02-22] VITALS: BP 124/68
[2020-02-22] MEDS ORDERED: LORazepam Inj 2mg/ml 1ml IM ONE
[2020-02-22] MEDS ORDERED: Haloperidol 5mg/ml Inj IM ONE
--- NOTE | 2020-02-22 | NUR ---
ED Nurse Note: pt UMANG [id number] from home d/t heroin overdose taken about 3 hours ago. Per EMS report pt lives in apartment complex. Upon arrival pt is AAOx3, uncooperative, yelling, thrashing. Pt is tachycardic on monitor [id number], other vitals stable. Pt has multiple scars and wounds throughout body and face. Pt has bruised left eye. When speaking with pt, pt reports she was in a "friends house."
--- NOTE | 2020-02-22 00:01 | Emergency Room Report ---
History of Present Illness General Chief Complaint: Substance Abuse Source: Patient Present Illness HPI Patient is a 64-year-old female brought in by ambulance for increased agitation. Patient had become agitated over the past few hours after reportedly doing heroin which was laced with other substance. Patient had previous history of substance abuse. Also COPD. Patient is markedly limited by patient's mental status and poor historian Allergies: Coded Allergies: TOPIRAMATE (Verified Allergy, Severe, 05/10/19) Says it puts her out and makes her delerious. METRONIDAZOLE (Verified Allergy, Unknown, Altered Mental Status, 05/10/19) She feels . 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 COVID-19 Screening Contact w/high risk pt: No Experienced COVID-19 symptoms?: No COVID-19 Testing performed ROPE WALKER: No Patient History Past Medical History: see triage record Reviewed Nursing Documentation: PMH: Agreed; PSxH: Agreed Nursing Documentation-PMH Hx Hypertension: Yes Hx Cancer: No Hx Gastrointestinal Problems: No History Of Psychiatric Problem: Yes Hx Neurological Problems: No Review of Systems All Other Systems: negative except mentioned in HPI Physical Exam Vital Signs Date Time Temp Pulse Resp B/P (MAP) Pulse Ox O2 Delivery O2 Flow Rate FiO2 02/21/20 23:44 99.0 130 24 160/80 (106) 98 Room Air General Appearance: alert, other - Agitated Head: normocephalic Eyes: bilateral eye other - Slight bruising to the eyelid ENT: hearing grossly normal Neck: normal inspection Respiratory: lungs clear Cardiovascular #1: normal inspection, regular rate, rhythm Gastrointestinal: normal inspection, soft Musculoskeletal: normal inspection Neurologic: alert, motor strength/tone normal Skin: other - Multiple scars to lower extremities Medical Decision Making Diagnostic Impression: Primary Impression: Polysubstance abuse ER Course Patient presented for increased agitation. Differential diagnosis include was not limited to substance abuse, CVA, encephalopathy among others. Because of complexity of patient's case laboratory tests and imaging studies were ordered. She was initially noted to be markedly agitated. Patient is given antipsychotic medication. Patient's urine drug screen showed positive for amphetamines, cocaine, opiates and benzodiazepines. Patient had been given Ativan as well as Haldol prior to urine testing. Patient was noted to have improvement in agitation. Patient was noticeably more calm. CT imaging showed no evidence of acute intracranial hemorrhage. Patient was given medications and was noted to have improved mental status and agitation over time. Patient was able to sleep in the emergency department and subsequently was noted to have improvement in her situation. She was advised to discontinue using of drugs. Patient states she normally is nonambulatory and uses a wheelchair. Patient will be discharged home. The patient is advised to follow up with primary care doctor in 1-2 days. Patient is advised to return if any worsening condition or if any changes in status that are concerning. This report is dictated with [employer] whiskey proof reader software which may occ asionally lead to discrepancies related to use of this software. Labs Test 02/22/20 00:10 02/22/20 00:12 White Blood Count 8.5 K/UL (4.8-10.8) Red Blood Count 4.50 M/UL (4.20-5.40) Hemoglobin 14.2 G/DL (12.0-16.0) Hematocrit 40.2 % (37.0-47.0) Mean Corpuscular Volume 89 FL (80-99) Mean Corpuscular Hemoglobin 31.6 PG (27.0-31.0) Mean Corpuscular Hemoglobin Concent 35.3 G/DL (32.0-36.0) Red Cell Distribution Width 11.5 % (11.6-14.8) Platelet Count 106 K/UL (150-450) Mean Platelet Volume 12.8 FL (6.5-10.1) Neutrophils (%) (Auto) 80.1 % (45.0-75.0) Lymphocytes (%) (Auto) 11.9 % (20.0-45.0) Monocytes (%) (Auto) 6.8 % (1.0-10.0) Eosinophils (%) (Auto) 0.5 % (0.0-3.0) Basophils (%) (Auto) 0.7 % (0.0-2.0) Sodium Level 138 MMOL/L (136-145) Potassium Level 4.0 MMOL/L (3.5-5.1) Chloride Level 100 MMOL/L (98-107) Carbon Dioxide Level 32 MMOL/L (21-32) Blood Urea Nitrogen 13 mg/dL (7-18) Creatinine 1.2 MG/DL (0.55-1.30) Estimat Glomerular Filtration Rate 45.3 mL/min (>60) Glucose Level 230 MG/DL (74-106) Calcium Level 8.2 MG/DL (8.5-10.1) Total Bilirubin 0.5 MG/DL (0.2-1.0) Aspartate Amino Transf (AST/SGOT) 85 U/L (15-37) Alanine Aminotransferase (ALT/SGPT) 44 U/L (12-78) Alkaline Phosphatase 128 U/L (46-116) Troponin I 0.007 ng/mL (0.000-0.056) Total Protein 7.5 G/DL (6.4-8.2) Albumin 3.6 G/DL (3.4-5.0) Globulin 3.9 g/dL Albumin/Globulin Ratio 0.9 (1.0-2.7) Salicylates Level 0.8 ug/mL (2.8-20) Acetaminophen Level < 2 MCG/ML (10-30) Serum Alcohol < 3 mg/dL Urine Color Pale yellow Urine Appearance Clear Urine pH 7 (4.5-8.0) Urine Specific [place] 1.005 (1.005-1.035) Urine Protein Negative (NEGATIVE) Urine Glucose (UA) 2+ (NEGATIVE) Urine Ketones Negative (NEGATIVE) Urine Blood Negative (NEGATIVE) Urine Nitrite Negative (NEGATIVE) Urine Bilirubin Negative (NEGATIVE) Urine Urobilinogen 1 MG/DL (0.0-1.0) Urine Leukocyte Esterase Negative (NEGATIVE) Urine Opiates Screen Positive (NEGATIVE) Urine Barbiturates Screen Negative (NEGATIVE) Phencyclidine (PCP) Screen Negative (NEGATIVE) Urine Amphetamines Screen Positive (NEGATIVE) Urine Benzodiazepines Screen Positive (NEGATIVE) Urine Cocaine Screen Positive (NEGATIVE) Urine Marijuana (THC) Screen Negative (NEGATIVE) Last Vital Signs Date Time Temp Pulse Resp B/P (MAP) Pulse Ox O2 Delivery O2 Flow Rate FiO2 02/21/20 23:44 99.0 130 24 160/80 (106) 98 Room Air Status: improved Disposition: HOME, SELF-CARE Condition: Stable Referrals: [facility],REFERRING (PCP) Amanuel Bailey MD Feb 22, 2020 00:01
--- NOTE | 2020-02-22 00:21 | NUR ---
ED Nurse Note: blood collected and sent to lab
[2020-02-22 00:39] LABS: BASOPHILS % (AUTO) 0.7 % (0.0-2.0); EOSINOPHILS % (AUTO) 0.5 % (0.0-3.0); HEMATOCRIT 40.2 % (37.0-47.0); HEMOGLOBIN 14.2 G/DL (12.0-16.0); LYMPHOCYTES % (AUTO) 11.9 % (20.0-45.0); MEAN CORPUSCULAR VOLUME 89 FL (80-99); MONOCYTES % (AUTO) 6.8 % (1.0-10.0); NEUTROPHILS % (AUTO) 80.1 % (45.0-75.0); PLATELET COUNT 106 K/UL (150-450); RED CELL DISTRIBUTION WIDTH 11.5 % (11.6-14.8); WHITE BLOOD COUNT 8.5 K/UL (4.8-10.8)
[2020-02-22 00:45] LABS: ALANINE AMINOTRANSFERASE 44 U/L (12-78); ALBUMIN 3.6 G/DL (3.4-5.0); ALBUMIN/GLOBULIN RATIO 0.9 (1.0-2.7); ALKALINE PHOSPHATASE 128 U/L (46-116); ASPARTATE AMINO TRANSFERASE 85 U/L (15-37); BILIRUBIN,TOTAL 0.5 MG/DL (0.2-1.0); BLOOD UREA NITROGEN 13 mg/dL (7-18); CALCIUM 8.2 MG/DL (8.5-10.1); CARBON DIOXIDE 32 MMOL/L (21-32); CHLORIDE 100 MMOL/L (98-107); CREATININE 1.2 MG/DL (0.55-1.30); SODIUM 138 MMOL/L (136-145)
--- NOTE | 2020-02-22 01:00 | NUR ---
ED Nurse Note: urine sent to lab
[2020-02-22 01:03] LABS: APPEARANCE,URINE CLEAR; BILIRUBIN, URINE NEGATIVE (NEGATIVE); COLOR,URINE PALE YELLOW; GLUCOSE, URINE (UA) 2+ (NEGATIVE); KETONES,URINE NEGATIVE (NEGATIVE); LEUKOCYTE ESTERASE ,URINE NEGATIVE (NEGATIVE); NITRITE,URINE NEGATIVE (NEGATIVE); PH,URINE 7 (4.5-8.0); PROTEIN,URINE NEGATIVE (NEGATIVE); UROBILINOGEN,URINE 1 MG/DL (0.0-1.0)
--- NOTE | 2020-02-22 01:20 | NUR ---
ED Nurse Note: pt went down to CT via gurney accompanied by CT staff.
--- NOTE | 2020-02-22 01:39 | Diagnostic Imaging Report ---
EXAM: CT Head Without Intravenous Contrast CLINICAL HISTORY: AMS TECHNIQUE: Axial computed tomography images of the head/brain without intravenous contrast. CTDI is 53.4 mGy and DLP is 1098.9 mGy-cm. One or more of the following dose reduction techniques were used: automated exposure control, adjustment of the mA and/or kV according to patient size, use of iterative reconstruction technique. COMPARISON: No relevant prior studies available. FINDINGS: Brain: No intracranial hemorrhage, mass-effect, or edema. Mild chronic microvascular ischemic changes. Ventricles: Unremarkable. Bones/joints: Unremarkable. No fracture. Soft tissues: Unremarkable. Sinuses: Unremarkable as visualized. Mastoid air cells: Unremarkable as visualized. IMPRESSION: No acute intracranial abnormality.
--- NOTE | 2020-02-22 01:40 | NUR ---
ED Nurse Note: pt back from CT in stable condition.
--- NOTE | 2020-02-22 02:30 | NUR ---
ED Nurse Note: pt laying in bed with eyes closed, breathing even and unlabored. Opens eyes to touch. Vital signs stable.
--- NOTE | 2020-02-22 03:45 | NUR ---
ED Nurse Note: pt laying in bed with eyes closed. Warm blankets provided. Pt opens eyes when name is called. AAOx4 calm and cooperative with care.
--- NOTE | 2020-02-22 04:50 | NUR ---
ED Nurse Note: pt laying in bed with eyes closed. No complaints from pt. Breathing even and unlabored. Opens eyes when name is called. Vital signs stable.
[2020-02-22 05:35] VITALS: BP 118/72
--- NOTE | 2020-02-22 05:35 | NUR ---
ER DISCHARGE NOTE: Patient is cleared to be discharged per ERMD, pt is aox4, on room air, with stable vital signs. pt was given dc and prescription instructions, pt was able to verbalize understanding, pt id band and iv site removed without complications. pt is able to ambulate with steady gait. pt took all belongings.
== END 2020-02-22 05:35 | disposition home or self-care (01) ==
LOC: EDBD 23:43 → EMR 23:55
DX: F11.10 Opioid abuse, uncomplicated (principal); F15.10 Other stimulant abuse, uncomplicated; F14.10 Cocaine abuse, uncomplicated; F13.129 Sedative, hypnotic or anxiolytic abuse with intoxication, unspecified; J44.9 Chronic obstructive pulmonary disease, unspecified; I10 Essential (primary) hypertension; Z88.1 Allergy status to other antibiotic agents; Z88.8 Allergy status to other drugs, medicaments and biological substances
CPT/HCPCS: 36415; 70450; 80053; 80307; 81003; 84484; 85025; 96372; G0480; G0481; J1630; Z7502; 99284